=== PATIENT | female | born 1935 | race Caucasian/White ===

== ENCOUNTER 2017-09-01 12:57 | Outpatient (CLI) | payer MEDICARE, BC ==
[2017-09-01 14:34] LABS: #Basophils 0.1 thou/uL (0.0-0.2); #Eosinphils 0.2 thou/uL (0.0-0.7); #Lymphocytes 1.2 thou/uL (1.20-3.40); #Monocytes 0.8 thou/uL (0.11-0.59); %Basophils 0.9 % (0.0-1.0); %Eosinophils 3.8 % (0.0-10.0); %Lymphocytes 19.7 % (21.0-51.0); %Monocytes 12.1 % (0.0-10.0); Hematocrit 42.8 % (36.0-47.0); Mean Platelet Volume 5.3 fL (7.4-10.4); Red Blood Cell (RBC) Count 4.51 mill/uL (4.20-5.40); White Blood Cell (WBC) Count 6.3 thou/uL (4.8-10.8)
[2017-09-01 14:52] LABS: Anion Gap 11 mmol/L (10-20); BUN (Urea Nitrogen) 13 mg/dL (9.8-20.1); Calc. Creatinine Clearance 0 mL/min (70-130); Carbon Dioxide 27 mmol/L (23-31); Chloride 97 mmol/L (98-107); Estimated GFR-MDRD 65
--- NOTE | 2017-09-01 15:49 | RAD ---
RADIOGRAPH CHEST 2 VIEWS: 09/01/17 HISTORY: 82-year-old female for preoperative evaluation. FINDINGS: The thoracic aorta is tortuous and ectatic. There is no evidence of air space density, pneumothorax, or pulmonary edema. There is no cardiomegaly or pleural effusion. IMPRESSION: 1) No acute cardiopulmonary findings. 2) Ectasia of thoracic aorta. damir [] POS: ENE
--- NOTE | 2017-09-02 07:46 | EKG ---
Test Reason : Blood Pressure : / mmHG Vent. Rate : 078 BPM Atrial Rate : 078 BPM P-R Int : 178 ms QRS Dur : 092 ms QT Int : 374 ms P-R-T Axes : 045 020 041 degrees QTc Int : 426 ms Normal sinus rhythm Normal ECG When compared with ECG of 28-JUL-2001 14:51, No significant change was found Confirmed by TEE VILLEGAS ([id number]) on 09/02/2017 7:46:07 AM Referred By: JOANA Confirmed By:TEE VILLEGAS
== END 2017-09-01 12:58 | disposition home or self-care (01) ==
LOC: LABBT 12:57
PROVIDERS: ATTEND Specialist
DX: Z01.818 Encounter for other preprocedural examination (principal); C50.512 Malignant neoplasm of lower-outer quadrant of left female breast; Z17.0 Estrogen receptor positive status [ER+]; I77.810 Thoracic aortic ectasia
CPT/HCPCS: 71020; 80048; 85025; 93005; 93010

== ENCOUNTER 2017-09-09 09:17 | Day surgery (SDC) | payer MEDICARE, BC ==
[2017-09-01 13:15] VITALS: BMI 32.1
--- NOTE | 2017-09-01 22:55 | HP ---
HISTORY OF PRESENT ILLNESS: Veronica Figueredo is an 82-year-old female patient I have seen in the past and performed laparoscopic cholecystectomy, wide excision of left leg melanoma and groin node biopsy . Patient is cured from that melanoma with no evidence of disease, resection performed in 2000. The patient now notes that she appreciated a mass on self exam in the lateral left breast slightly lower outer quadrant about five fingerbreadths from the areolar border. Dr. Kylah Austin saw her and [facility] mogram and ultrasound was obtained, revealed a 1.1 x 2 cm mass 5 cm from the areolar border. Biopsie s were obtained revealing a T1c N0 M0, ER/MS positive, HER-2/2+ and FISH negative left breast cancer. Dr. Long has told the patient that most likely sentinel node biopsy and partial mastectomy shoul d be performed and that she likely will not need radiation therapy and we will likely be treated with oral anti-hormonal therapy. MEDICATIONS: Metformin 500 mg 3 times a day with meals, lovastatin 20 mg with meals once a day, edmond nopril 20 mg once a day, omeprazole 20 mg a day, Januvia 100 mg p.o. daily, aspirin 81 mg a day, nife dipine ER 60 tablet extended release 24 hour tablet once a day, alprazolam 0.5 mg once a day. PAST MEDICAL HISTORY: Obesity, metabolic syndrome, diabetes, hypertension, elevated cholesterol; his tory of melanoma, left leg, status post wide excision and no dissections performed. ALLERGIES: DULOXETINE PAST SURGICAL HISTORY: Total knee replacement in 2009. Cardiac stent 2007 without history of myocar dial infarction. She is followed by Dr. Agustín Hedrick. She had a cardiac stress test in May of this year that was normal. Echocardiogram was normal, we have requested the results. Left knee repl acement in 2013, laparoscopic cholecystectomy I performed in 2000. FAMILY HISTORY: Her mother had breast cancer. TOBACCO: None. ALCOHOL: None. PHYSICAL EXAMINATION: VITAL SIGNS: Weight 176 pounds, 62 inches, 32 BMI, 162/76, 94, 98.2 degrees. LUNGS: Clear to auscultation. CARDIAC: Regular rate and rhythm without murmur or gallop. ABDOMEN: Soft, obese, nontender. EXTREMITIES: Unremarkable. BREASTS: Right breast without masses. Axilla without lymphadenopathy. Left breast approximately 5 fingerbreadths from the areolar border at about 3:30 or 4:00 radian is a palpable mobile 1.5-2 cm mas s. This has irregular margins firm and mobile and not attached. Nipple and areolar normal bilateral ly. ASSESSMENT AND PLAN: Left breast cancer, HER-2 negative by FISH, ER/MS positive. Would recommend ly mphoscintigraphy, sentinel node biopsy, possibly axillary node dissection, partial mastectomy as an o utpatient. We will plan this next week. Risk of infection, bleeding, reoperation, wound problems ex plained. She consents. Questions answered. She was encouraged that she should have a good result. Prognosis is good. Options for mastectomy given, but the patient is not interested in this. She li selin in [place], is retired.
[2017-09-09] MEDS ORDERED: Bupivacaine/Epinephrine 0.25% 30 ML VIAL ONE ×2 (12:08→13:22)
[2017-09-09] MEDS ORDERED: Lidocaine 2% w/Epinephrine 1:200K 20 ML VIAL ONE (12:15)
[2017-09-09] MEDS ORDERED: Lidocaine 2% PF 5 ML VIAL ONE (12:15)
[2017-09-09] MEDS ORDERED: Fentanyl 100 MCG/2 ML VIAL ONE ×2 (12:16)
[2017-09-09] MEDS ORDERED: Isosulfan Blue 50 MG/5 ML VIAL ONE (12:25)
[2017-09-09] MEDS ORDERED: CEFAZOLIN/Water 2 GM/20 ML SYRINGE ONE (12:53)
--- NOTE | 2017-09-09 13:46 | NM ---
LYMPHOSCINTIGRAPHY: Technique: A left breast lymphoscintigraphy was performed using 0.4 mCi of Technetium 99M filtered clark lfur colloid. FINDINGS: Uptake is seen in the periareolar region of the left breast. No uptake was seen in the axilla at the time that this exam was terminated by the patient's surgeon. IMPRESSION: No sentinel lymph node identified. POS: FREDERICK
[2017-09-09] MEDS ORDERED: Propofol 200 MG/20 ML VIAL ONE (14:19)
[2017-09-09] MEDS ORDERED: ePHEDrine/0.9% NaCl/PF SYRINGE 50 mg/10 ml ONE (14:19)
[2017-09-09] MEDS ORDERED: Glycopyrrolate 0.2 MG/ML 5 ML SYRINGE ONE (14:19)
[2017-09-09] MEDS ORDERED: Dexamethasone 20 MG/5 ML VIAL ONE (14:19)
[2017-09-09] MEDS ORDERED: Ondansetron HCl/PF 4 MG/2 ML Vial ONE (14:19)
[2017-09-09] MEDS ORDERED: Lidocaine 1% PF 5 ML VIAL ONE (14:19)
--- NOTE | 2017-09-09 17:39 | OP ---
DATE OF PROCEDURE: 09/09/2017 Note, the patient was seen by Dr. Long preoperatively. PREOPERATIVE DIAGNOSIS: Left breast [id number], ER/UT positive, HER-2/2+ and FSH negative left breast c ancer, lower outer quadrant. POSTOPERATIVE DIAGNOSIS: Left breast [id number], ER/UT positive, HER-2/2+ and FSH negative left breast cancer, lower outer quadrant. PROCEDURES: Partial mastectomy, left breast cancer, lower outer quadrant, left. Sunland node biops y with lymphoscintigraphy preoperatively and Lymphazurin blue injection left lateral periareolar. Tw o sentinel nodes identified, blue colored, despite preoperative lymphoscintigraphy not able to locali ze the nodes. Neoprobe revealed increased counts despite failed lymphoscintigraphy. Sunland node t ouch prep negative. SURGEON: Dr. Rudolph Harley ANESTHESIA: General. Local 0.25% Marcaine with epinephrine 60 mL mixed with 2% Xylocaine, 10 mL tot al volume mixture used. DESCRIPTION OF PROCEDURE: The patient was taken to the operating room where under general anesthesia , lateral areolar area prepared with alcohol and Lymphazurin blue injected in the subdermal periareol ar 6 mL. Breast was massaged and prepared with chloraprep, draped in routine fashion. Incision made in the lower left axillary line and carried down through the skin and subcutaneous tissue and deep f ascia. Neoprobe revealed increased counts. There is 2 enlarged blue color lymph nodes were identifi ed. Neoprobe counts revealed increased counts relatively surrounding broussard. These were excised usi ng cautery for hemostasis. Once the nodes were excised, the background counts were negative. The ex cised lymph nodes had counts of 25-40. Touch prep of the lymph nodes was negative for metastasis. H emostasis gained with the cautery. Subcutaneous tissues approximated with 3-0 Monocryl, skin with clark bdermal 4-0 Monocryl and DermaGlue applied. Incision was made in the lateral left breast inferior outer quadrant. Radial curvilinear incision ma de and carried down through the skin and subcutaneous tissue and a wide local excision of the lining palpable mass performed with wide excision with wide margins. Once this was excised, partial mastect teagan margins marked probably with silk and Prolene suture. Hemostasis gained with cautery. Subcutane ous tissues approximated with 3-0 Monocryl, skin with subdermal 4-0 Monocryl and DermaGlue applied. Local anesthetic had been infiltrated in the biopsy cavity in the surrounding soft tissue. The patie nt tolerated the procedure well.
== END 2017-09-09 17:00 | disposition home or self-care (01) ==
LOC: SDC 09:17
PROVIDERS: ATTEND Specialist
PROC: 0HBU0ZZ Excision of Left Breast, Open Approach (ICD-10-PCS; principal; 2017-09-09)
DX: D05.12 Intraductal carcinoma in situ of left breast (principal); I10 Essential (primary) hypertension; E11.9 Type 2 diabetes mellitus without complications; E78.00 Pure hypercholesterolemia, unspecified; Z79.84 Long term (current) use of oral hypoglycemic drugs; Z79.899 Other long term (current) drug therapy; Z90.49 Acquired absence of other specified parts of digestive tract; Z96.652 Presence of left artificial knee joint; Z98.890 Other specified postprocedural states; Z17.0 Estrogen receptor positive status [ER+]
CPT/HCPCS: 19301; 38525; 38900; 78195; 88307; 88331; 88334; 88342; A9541; Q9968; J0131; J1100; J2001; J2405; J2704; J3010

== ENCOUNTER 2017-10-08 14:24 | Outpatient (CLI) | payer MEDICARE, BC ==
--- NOTE | 2017-10-08 16:59 | CT ---
CT ABDOMEN NONCONTRAST CT PELVIS NONCONTRAST: DATE: 10/08/17 HISTORY: 82-year-old female with abdominal bloating, R14.0, generalized abdominal pain, R10.84, constipation, K59.00, and left breast cancer. COMPARISON: None available. TECHNIQUE: IV injection of iodinated contrast media: none Oral contrast media: Administered FINDINGS: Other than for urolithiasis, the lack of IV contrast limits the evaluation. There is an at least 4 x 3 cm soft tissue density mass in the left breast, of which only the inferior portion has been imaged. This is presumed to represent a postsurgical hematoma. The lung bases are c lear of air space opacities and pleural effusion. There are no renal, ureteral, or bladder calculi. T he urinary bladder has normal thin carrillo. No small bowel dilation. The appendix is not identified, but there is no evidence of acute appendicitis. There are multiple di verticula in the sigmoid colon, without acute sigmoid colonic diverticulitis. No abscess, ascites, or pneumoperitoneum. No hydroureteronephrosis. There are multiple lobulations of the bilateral renal ou tlines. Some of this probably represents lobulations. There may be superimposed multifocal belinda l scars from previous insults (such as previous infarctions or infections). No renal calculi. No abdo suzanne aortic aneurysm. Within the limitations of a non-IV contrast scan, no gross abnormality is iden tified involving the liver, adrenals, or spleen. Pancreas is atrophic. No signs of acute pancreatiti s. Multiple surgical clips following the left common iliac vessels. No destructive osseous lesion oliveroi ntified. There is focal area of fat stranding in the left perirenal space, with the appearance of a s mall amount of fluid abutting the lateral portion of the left renal lower pole cortex. IMPRESSION: 1. Appearance of a small amount of fluid in the left renal lower perirenal space. This is of unc ertain etiology and clinical significance. 2. Status post cholecystectomy and perhaps status post appendectomy. 3. Sigmoid colonic diverticulosis without acute diverticulitis. 4. No obstructive uropathy, and no nephrolithiasis. DOREEN Garcia POS: FREDERICK
== END 2017-10-08 14:25 | disposition home or self-care (01) ==
LOC: CT 14:24
PROVIDERS: ATTEND Specialist
DX: R10.84 Generalized abdominal pain (principal); R14.0 Abdominal distension (gaseous); K59.00 Constipation, unspecified; Z90.49 Acquired absence of other specified parts of digestive tract; K57.30 Diverticulosis of large intestine without perforation or abscess without bleeding
CPT/HCPCS: 74176